=== PATIENT | female | born 1945 | race Caucasian/White ===

== ENCOUNTER → 2016-11-18 | Outpatient (CLI) | payer OTHER, BC ==
[~2016-11-18] MED LIST: ASPIR-LOW81 MG PO; BUPROPION XL150 MG PO; BUTALB-APAP-CA1 EACH PO; CALCIUM PO; CARAFATE100 MG/ML PO; CITALOPRAM HBR20 MG PO; CITRACEL PO; OMEGA 3 KRILL OIL PO; PEPCID40 MG PO; PREMARIN VAGI42.5 GM VG; SIMVASTATIN40 MG PO; TESSALON200 MG PO; VITAMIN D31000 UNIT PO; ZANAFLEX2 M1 PO; ZEGERID40 MG PO
== END | disposition home or self-care (01) ==
DX: R13.10 Dysphagia, unspecified (principal); K21.9 Gastro-esophageal reflux disease without esophagitis
CPT/HCPCS: 92611 GN; G8996 GN; G8997 GN; G8998 GN

== ENCOUNTER 2017-06-10 15:36 | Emergency (ER) | payer OTHER, BC ==
[~2017-06-10] VITALS: Ht 160 cm; Wt 72.3 kg
[2017-06-10 18:07] LABS: HEMATOCRIT 38.3 % (36.0-46.0); MCH 27.3 PG (29.0-34.0); MCHC 32.4 G/DL (30.0-36.0); MCV 84.4 FL (83-99); MEAN PLAT.VOLUME 10.6 uM^3 (9.5-12.4); PLATELET COUNT 276 K/uL (156-360); RBC DIS.WIDTH-CV 14.6 % (11.8-14.6); RBC DIS.WIDTH-SD 44.8 % (39-53); RED BLOOD COUNT 4.54 M/uL (3.80-5.20); WHITE BLOOD COUNT 6.3 K/uL (4.1-10.2)
[2017-06-10 18:19] LABS: CHLORIDE 103 mEq/L (99-109); POTASSIUM 4.6 mEq/L (3.7-5.4); SODIUM 138 mEq/L (136-147)
[2017-06-10 18:21] LABS: GLUCOSE 93 mg/dL (70-99)
[2017-06-10 18:23] LABS: ANION GAP 9 MEQ/L (2-14); TOTAL BILIRUBIN 0.3 mg/dL (0.0-1.0)
[2017-06-10 18:25] LABS: ALKALINE PHOSPHATASE 77 IU/L (3-129); GFR ESTIMATE (CALCULATED) > 59 mL/min/
[2017-06-10 18:26] LABS: UREA NITROGEN (BUN) 11 mg/dL (9-23)
[2017-06-10 18:34] LABS: TROP-I INTERPRETATION NEGATIVE; TROPONIN-I < 0.01 ng/mL (0.0-0.30)
[2017-06-10 18:59] LABS: ADD MIUA? NO; BILIRUBIN NEGATIVE; BLOOD NEGATIVE; COLOR COLORLESS ((YELLOW)); GLUCOSE (STRIP) NEGATIVE; KETONES NEGATIVE; LEUKOCYTES NEGATIVE; NITRITE NEGATIVE; PROTEIN (STRIP) NEGATIVE; SPECIFIC GRAVITY 1.004 (1.000-1.030); UROBILINOGEN 0.2 MG/DL (0.2-1.0)
[2017-06-10 20:03] VITALS: BP 128/76
== END 2017-06-10 20:06 | disposition home or self-care (01) ==
LOC: EME 15:36
PROVIDERS: Nurse Practitioner Family
DX: R53.83 Other fatigue (principal); E06.3 Autoimmune thyroiditis; K21.9 Gastro-esophageal reflux disease without esophagitis; E78.5 Hyperlipidemia, unspecified; F41.9 Anxiety disorder, unspecified; F32.9 Major depressive disorder, single episode, unspecified; Z87.891 Personal history of nicotine dependence; Z88.2 Allergy status to sulfonamides; Z88.1 Allergy status to other antibiotic agents; Z88.8 Allergy status to other drugs, medicaments and biological substances
CPT/HCPCS: 80053; 81003; 84439; 84443; 84484; 85027; 93005; 99281; 99283